=== PATIENT | male | born 1950 | race Caucasian/White ===

== ENCOUNTER → 2016-11-22 | Outpatient (CLI) | payer MEDICARE, OTHER ==
--- NOTE | 2016-11-22 10:44 | RADIOLOGY REPORT (SQ) ---
EXAM DESCRIPTION: MRI LUMBAR SPINE WITHOUT COMPLETED DATE/TIME: 11/22/2016 9:42 am REASON FOR STUDY: LOW BACK PAIN (M54.5) M54.5 LOW BACK PAIN COMPARISON: None. TECHNIQUE: Sagittal and Axial imaging includes T1, T2, STIR and gradient echo sequences. Coronal T2/ HASTE imaging. LIMITATIONS: None. FINDINGS: VISUALIZED UPPER ABDOMEN: Limited evaluation. No acute or suspicious findings suggested. SEGMENTATION: No transitional anatomy. The lowest well-developed disc space is labeled L5-S1. ALIGNMENT: Mild retrolisthesis of L5 on S1. There is mild grade 1 anterolisthesis of L4 on L5. Alig nment is otherwise intact. VERTEBRAE: Intact. BONE MARROW: Normal. No marrow replacement or reactive changes. DISC SIGNAL: Is mild spinal canal narrowing POSTERIOR ELEMENTS: Generally intact. No pars defect evident. HARDWARE: None in the spine. CORD AND CONUS: Normal in size and signal intensity. Conus at the appropriate level, L1. SOFT TISSUES: No aortic aneurysm seen. No bulky retroperitoneal adenopathy or mass. Right renal cyst s noted. No paraspinal mass or fluid. L1-L2: Minimal circumferential disc bulging without focal disc protrusion. Mild facet hypertrophy/ a rthropathy lobe minimal ligamentum flavum thickening. There is effacement of the posterolateral thec al sacs. No significant neural foraminal narrowing. No significant spinal canal stenosis. L2-L3: Circumferential disc bulging without focal disc protrusion. There is facet hypertrophy/arthro blane with ligamentum flavum thickening. Minimal spinal canal narrowing secondary to facet/ligamentu m disease and disc disease. Minimal bilateral neural foraminal narrowing noted. L3-L4: Circumferential disc bulging without focal protrusion. Ligamentum flavum thickening and facet arthropathy/ hypertrophy. There is effacement of the anterior and posterolateral thecal sac seconda ry to disc and ligamentum disease. No significant spinal canal stenosis identified. No significant neural foraminal narrowing. L4-L5: Circumferential disc bulging without focal disc protrusion there is facet hypertrophy and liga mentum flavum thickening. Mild spinal canal narrowing slightly worse on the right than on the left s shelley. Mild bilateral neural foraminal narrowing, right greater than left. L5-S1: Circumferential disc bulging without focal disc protrusion. There is ligamentum flavum thicke benito and facet hypertrophy. No significant spinal canal stenosis identified. Moderate bilateral cherie ral foraminal narrowing noted. LOWER THORACIC: Incompletely imaged. No stenosis seen. SACRUM: Visualized upper sacrum intact. OTHER: No other significant findings. IMPRESSION: 1. Multilevel degenerative changes throughout the lumbar spine including facet hypertrop hy/ arthropathy, ligamentum flavum thickening, and degenerative disc disease. Mild retrolisthesis of L5 on S1. Grade 1 anterolisthesis of L4 on L5. 2. Mild spinal canal narrowing noted a self t 4- L5 and minimally at L2-L3 secondary to degenerative changes as detailed above. 3. Scattered neural foraminal narrowing throughout the lumbar spine most significant at L5-S1 bilate rally which is moderate. TECHNICAL DOCUMENTATION: JOB ID: [id number] [employer]- All Rights Reserved
== END ==
LOC: RAD 08:56
PROVIDERS: ATTEND Family Medicine
DX: M54.5 Low back pain (principal); M47.896 Other spondylosis, lumbar region
CPT/HCPCS: 72148

== ENCOUNTER → 2019-01-15 | Outpatient (CLI) | payer MEDICARE, OTHER ==
--- NOTE | 2019-01-15 08:45 | RADIOLOGY REPORT (SQ) ---
EXAM DESCRIPTION: MRI LUMBAR SPINE WITHOUT COMPLETED DATE/TIME: 01/15/2019 8:16 am REASON FOR STUDY: SPINAL STENOSIS, LUMBAR REGION (M48.062) M48.062 SPINAL STENOSIS, LUMBAR REGION W ITH NEUROGENIC BUD COMPARISON: MRI lumbar spine 11/22/2016 TECHNIQUE: Sagittal and Axial imaging includes T1, T2, STIR and gradient echo sequences. Coronal T2/ HASTE imaging. LIMITATIONS: None. FINDINGS: VISUALIZED UPPER ABDOMEN: 3.5 cm right lower pole renal cortical cyst, benign SEGMENTATION: No transitional anatomy. The lowest well-developed disc space is labeled L5-S1. ALIGNMENT: Grade 1 anterolisthesis of L4 over L5 from advanced facet arthropathy VERTEBRAE: Intact. BONE MARROW: Normal. No marrow replacement or reactive changes. DISC SIGNAL: Diffuse decreased T2 weighted intervertebral disc signal. Disc space loss of height at L4-5 and L5-S1 POSTERIOR ELEMENTS: Generally intact. No pars defect evident. HARDWARE: None in the spine. CORD AND CONUS: Normal in size and signal intensity. Conus at the T12-L1 level. SOFT TISSUES: No aortic aneurysm seen. No bulky retroperitoneal adenopathy or mass. No paraspinal mas s or fluid. T11-12: Unremarkable T12-L1: Minimal posterior disc bulging at and mild facet hypertrophy. No central or foraminal steno sis. L1-L2: Mild bilateral facet hypertrophy. No posterior disc bulging. No central or foraminal stenosi s. L2-L3: Minimal posterior disc bulging, mild bilateral facet and ligament hypertrophy. No central satya nosis. Very mild bilateral inferior foraminal narrowing without exiting L2 nerve root impingement L3-L4: Mild diffuse posterior disc bulging, moderate bilateral facet and ligament hypertrophy. Borde rline central canal narrowing. Minimal bilateral inferior foraminal narrowing without exit nerve paul t impingement L4-L5: Grade 1 anterolisthesis of L4 over L5, mild diffuse posterior disc bulge, moderate bilateral f acet and ligament hypertrophy. Borderline central canal narrowing. Mild bilateral inferior foramina l narrowing without exiting L4 nerve root impingement. L5-S1: Mild diffuse posterior disc bulging, moderate bilateral facet and ligament hypertrophy. No ce ntral stenosis. Mild to moderate bilateral foraminal narrowing without exit L5 nerve root impingemen t. SACRUM: Visualized upper sacrum intact. OTHER: No other significant findings. IMPRESSION: No high-grade central or foraminal stenosis TECHNICAL DOCUMENTATION: JOB ID: [id number] [employer]- All Rights Reserved Reading location - IP/workstation name: [email or web address]
== END ==
LOC: RAD 07:21
PROVIDERS: ATTEND Physician Assistant
DX: M48.062 Spinal stenosis, lumbar region with neurogenic claudication (principal)
CPT/HCPCS: 72148

== ENCOUNTER → 2019-02-27 | Outpatient (CLI) | payer MEDICARE, OTHER ==
--- NOTE | 2019-02-27 14:41 | RADIOLOGY REPORT (SQ) ---
EXAM DESCRIPTION: L SPINE FLEX/EXT ONLY COMPLETED DATE/TIME: 02/27/2019 1:20 pm REASON FOR STUDY: SPONDYLOLISTHESIS, LUMBAR REGION M43.16 SPONDYLOLISTHESIS, LUMBAR REGION COMPARISON: None. NUMBER OF VIEWS: Two view. TECHNIQUE: Lateral images were obtained in flexion and extension. LIMITATIONS: None. FINDINGS: MINERALIZATION: Normal. SEGMENTATION: Normal. No transitional anatomy. ALIGNMENT: There is grade 1 anterolisthesis of L4 on L5. FLEXION/EXTENSION: There is mild instability at L4-5. VERTEBRAE: Maintained height. No fracture or worrisome bone lesion. DISCS: Disc spaces are narrowed at L4-5 and L5-S1. POSTERIOR ELEMENTS: Hypertrophic facet changes from L4-S1. HARDWARE: None in the spine. OTHER: No other significant finding. IMPRESSION: Anterolisthesis of L4 on L5. Degenerative disc disease. Facet arthropathy. There is mild instability at L4-5 on flexion/extension. TECHNICAL DOCUMENTATION: JOB ID: [id number] [employer]- All Rights Reserved Reading location - IP/workstation name: [email or web address]
== END ==
LOC: OD 12:47
PROVIDERS: ATTEND Physician Assistant
DX: M43.16 Spondylolisthesis, lumbar region (principal); M51.36 Other intervertebral disc degeneration, lumbar region
CPT/HCPCS: 72120

== ENCOUNTER → 2020-01-13 | Outpatient (CLI) | payer MEDICARE, OTHER ==
--- NOTE | 2020-01-13 15:42 | RADIOLOGY REPORT (SQ) ---
EXAM DESCRIPTION: L SPINE FLEX/EXT ONLY IMAGES COMPLETED DATE/TIME: 01/13/2020 3:05 pm REASON FOR STUDY: SPONDYLOLISTHESIS, LUMBAR REGION M43.16 SPONDYLOLISTHESIS, LUMBAR REGION COMPARISON: None. NUMBER OF VIEWS: Two view. TECHNIQUE: Lateral views of the lumbar spine with flexion and extension. LIMITATIONS: None. FINDINGS: MINERALIZATION: Normal. SEGMENTATION: Normal. No transitional anatomy. ALIGNMENT: Grade 1 anterolisthesis of L4 on L5. FLEXION/EXTENSION: The anterolisthesis is slightly greater on the flexion image. VERTEBRAE: Maintained height. No fracture or worrisome bone lesion. DISCS: Preserved height. No significant osteophytes or end plate irregularity. POSTERIOR ELEMENTS: Pedicles and facets are intact. No pars defect or posterior arch defects. HARDWARE: None in the spine. OTHER: No other significant finding. IMPRESSION: Mild anterolisthesis of L4 on L5 with mild instability. NO INSTABILITY ON FLEXION/EXTENSION. TECHNICAL DOCUMENTATION: JOB ID: [id number] 2010 [employer]- All Rights Reserved Reading location - IP/workstation name: [email or web address]
== END ==
LOC: OD 14:42
PROVIDERS: ATTEND Nurse Practitioner Family
DX: M43.16 Spondylolisthesis, lumbar region (principal)
CPT/HCPCS: 72120

== ENCOUNTER → 2020-02-02 | Outpatient (CLI) | payer MEDICARE, OTHER ==
--- NOTE | 2020-02-02 12:49 | RADIOLOGY REPORT (SQ) ---
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 Coronal T2/ HASTE imaging. LIMITATIONS: Motion. FINDINGS: VISUALIZED UPPER ABDOMEN: Limited evaluation. No acute or suspicious findings suggested. SEGMENTATION: No transitional anatomy. The lowest well-developed disc space is labeled L5-S1. ALIGNMENT: Anatomic. VERTEBRAE: Intact. BONE MARROW: Normal. No marrow replacement or reactive changes. DISC SIGNAL: Desiccation multiple levels. Chronic endplate change L5-S1. POSTERIOR ELEMENTS: Generally intact. No pars defect evident. HARDWARE: None in the spine. CORD AND CONUS: Normal in size and signal intensity. Conus at the appropriate level. SOFT TISSUES: No aortic aneurysm seen. No bulky retroperitoneal adenopathy or mass. No paraspinal mas s or fluid. L1-L2: No significant spinal stenosis or exit foraminal stenosis. L2-L3: Minimal narrowing of the spinal canal due to disc bulge. L3-L4: Minimal narrowing of the spinal canal due to disc bulge. L4-L5: Mild spinal stenosis due to disc bulge, malalignment and facet arthropathy. Mild right neural foraminal narrowing. L5-S1: Disc bulge and facet arthropathy. Mild neural foraminal narrowing bilaterally. LOWER THORACIC: Incompletely imaged. No stenosis seen. SACRUM: Visualized upper sacrum intact. OTHER: No other significant findings. IMPRESSION: Spondylosis, facet arthropathy and malalignment. Mild spinal stenosis L4-5. No high-gr harrison stenosis. TECHNICAL DOCUMENTATION: JOB ID: [id number] 2010 [employer]- All Rights Reserved Reading location - IP/workstation name: [email or web address]
== END ==
LOC: RAD 10:22
PROVIDERS: ATTEND Nurse Practitioner Family
DX: M47.816 Spondylosis without myelopathy or radiculopathy, lumbar region (principal); M54.16 Radiculopathy, lumbar region
CPT/HCPCS: 72148